=== PATIENT | male | born 1975 | race Caucasian/White ===

== ENCOUNTER 2021-12-18 19:10 | Inpatient (IN) | payer OTHER ==
[2021-12-18 20:19] VITALS: BMI 26.6
[2021-12-18] MEDS ORDERED: ONDANSETRON *ODT* 4 MG TABLET SL PRN (21:53)
[2021-12-18] MEDS ORDERED: LOPERAMIDE HCL 2 MG CAPSULE PO PRN (21:53)
[2021-12-18] MEDS ORDERED: ACETAMINOPHEN 325 MG TABLET (FP) PO PRN (21:53)
[2021-12-18] MEDS ORDERED: NICOTINE 10 MG CARTRIDGE (INHALER) IH PRN (21:53)
[2021-12-18] MEDS ORDERED: MAGNESIUM CITRATE 300 ML BOTTLE PO PRN (21:53)
[2021-12-18] MEDS ORDERED: chlordiazePOXIDE HCL 25 MG CAPSULE PO PRN (21:53)
[2021-12-18] MEDS ORDERED: BENZOCAINE/MENTHOL (CHLORASEPTIC ) LOZENGE MM PRN (21:53)
[2021-12-18] MEDS ORDERED: DICYCLOMINE HCL 10 MG CAPSULE PO PRN (21:53)
[2021-12-18] MEDS ORDERED: MAGNESIUM HYDROX 2400MG/30ML ORAL SUSPENSION 30 ML CUP PO PRN (21:53)
[2021-12-18] MEDS ORDERED: DIVALPROEX SODIUM 500 MG TABLET E.C. PO SCH (22:00)
[2021-12-18] MEDS ORDERED: traZODone HCL 50 MG TABLET (FP) PO ONE (22:00)
[2021-12-18] MEDS: DIVALPROEX SODIUM 500 MG TABLET E.C. PO SCH (23:03)
[2021-12-18] MEDS: hydrOXYzine PAMOATE 25 MG CAPSULE (FP) PO PRN (23:03)
[2021-12-18] MEDS: chlordiazePOXIDE HCL 25 MG CAPSULE PO SCH (23:03)
[2021-12-18] MEDS: MELATONIN 5 MG TABLETS PO SCH (23:04)
[2021-12-18] MEDS: THIAMINE HCL 100 MG TABLET (FP) PO SCH (23:05)
[2021-12-19] MEDS: hydrOXYzine PAMOATE 25 MG CAPSULE (FP) PO PRN ×3 (05:34→17:54)
[2021-12-19] MEDS: chlordiazePOXIDE HCL 25 MG CAPSULE PO SCH ×4 (05:34→22:19)
[2021-12-19] MEDS: PRENATAL VITAMINS W/ FOLIC ACID TABLET (FP) PO SCH (10:11)
[2021-12-19] MEDS: DIVALPROEX SODIUM 500 MG TABLET E.C. PO SCH ×3 (10:11→22:40)
[2021-12-19] MEDS: PARoxetine HCL 20 MG TABLET PO SCH (10:12)
[2021-12-19] MEDS: METHOCARBAMOL 500 MG TABLET PO PRN (10:13)
[2021-12-19 11:15] LABS: HEMATOCRIT 39.5 % (35.4-49); HEMOGLOBIN 13.1 GM/dL (11.7-16.9); MCH 33.6 pg (25.7-33.7); MCHC 33.2 g/dl (32.0-35.9); MEAN CELL VOLUME 101.3 fl (80-96); MEAN PLT VOLUME 8.9 fl (7.5-11.1); PLATELET COUNT 216 10^3/uL (134-434); RDW 16.6 % (11.9-15.9); WHITE BLOOD COUNT 4.2 K/mm3 (4.0-10.0)
[2021-12-19 13:05] LABS: ALBUMIN 3.2 g/dl (3.4-5.0)
[2021-12-19 13:07] LABS: CALCIUM 8.9 mg/dL (8.5-10.1)
[2021-12-19 13:09] LABS: BLOOD UREA NITROGEN 12.8 mg/dL (7-18)
[2021-12-19 13:10] LABS: CREATININE 0.7 mg/dL (0.55-1.3)
[2021-12-19 13:11] LABS: BILIRUBIN,TOTAL 0.2 mg/dL (0.2-1); TOT PROT 5.9 g/dl (6.4-8.2)
[2021-12-19] MEDS: MAG HYDROX/AL HYDROX/SIMETH 30 ML UNIT-DOSE CUP PO PRN (17:16)
[2021-12-19] MEDS: ACETAMINOPHEN 325 MG TABLET (FP) PO PRN (17:57)
[2021-12-19] MEDS ORDERED: NICOTINE POLACRILEX 2 MG GUM BUC PRN (18:26)
[2021-12-19] MEDS: THIAMINE HCL 100 MG TABLET (FP) PO SCH (22:17)
[2021-12-19] MEDS: MELATONIN 5 MG TABLETS PO SCH (22:17)
[2021-12-19] MEDS: traZODone HCL 100 MG TABLET (FP) PO SCH (22:18)
[2021-12-20] MEDS: chlordiazePOXIDE HCL 25 MG CAPSULE PO SCH ×3 (07:54→17:39)
[2021-12-20] MEDS: METHOCARBAMOL 500 MG TABLET PO PRN (10:25)
[2021-12-20] MEDS: PRENATAL VITAMINS W/ FOLIC ACID TABLET (FP) PO SCH (10:25)
[2021-12-20] MEDS: DIVALPROEX SODIUM 500 MG TABLET E.C. PO SCH (10:25)
[2021-12-20] MEDS: PARoxetine HCL 20 MG TABLET PO SCH (10:45)
[2021-12-20] MEDS: hydrOXYzine PAMOATE 25 MG CAPSULE (FP) PO PRN (17:38)
[2021-12-20] MEDS: ACETAMINOPHEN 325 MG TABLET (FP) PO PRN (17:39)
[2021-12-21] MEDS ORDERED: chlordiazePOXIDE HCL 10 MG CAPSULE PO PRN
[2021-12-21] MEDS: traZODone HCL 100 MG TABLET (FP) PO SCH ×2 (01:16→22:04)
[2021-12-21] MEDS: DIVALPROEX SODIUM 500 MG TABLET E.C. PO SCH ×3 (01:16→22:04)
[2021-12-21] MEDS: chlordiazePOXIDE HCL 25 MG CAPSULE PO SCH (01:17)
[2021-12-21] MEDS: MELATONIN 5 MG TABLETS PO SCH ×2 (01:18→22:03)
[2021-12-21] MEDS: THIAMINE HCL 100 MG TABLET (FP) PO SCH ×2 (01:18→22:03)
[2021-12-21] MEDS: chlordiazePOXIDE HCL 10 MG CAPSULE PO SCH ×4 (06:06→22:04)
[2021-12-21] MEDS: PARoxetine HCL 20 MG TABLET PO SCH (11:29)
[2021-12-21] MEDS: PRENATAL VITAMINS W/ FOLIC ACID TABLET (FP) PO SCH (11:29)
[2021-12-21] MEDS: METHOCARBAMOL 500 MG TABLET PO PRN (17:11)
[2021-12-21] MEDS: hydrOXYzine PAMOATE 25 MG CAPSULE (FP) PO PRN (17:11)
[2021-12-22] MEDS: chlordiazePOXIDE HCL 10 MG CAPSULE PO SCH ×2 (05:36→16:59)
[2021-12-22] MEDS: ACETAMINOPHEN 325 MG TABLET (FP) PO PRN ×2 (08:57→17:00)
[2021-12-22] MEDS: DIVALPROEX SODIUM 500 MG TABLET E.C. PO SCH ×2 (10:35→22:20)
[2021-12-22] MEDS: PRENATAL VITAMINS W/ FOLIC ACID TABLET (FP) PO SCH (10:35)
[2021-12-22] MEDS: PARoxetine HCL 20 MG TABLET PO SCH (10:36)
[2021-12-22] MEDS: METHOCARBAMOL 500 MG TABLET PO PRN (17:00)
[2021-12-22] MEDS: THIAMINE HCL 100 MG TABLET (FP) PO SCH (22:20)
[2021-12-22] MEDS: MELATONIN 5 MG TABLETS PO SCH (22:20)
[2021-12-22] MEDS: traZODone HCL 100 MG TABLET (FP) PO SCH (22:20)
[2021-12-23] MEDS ORDERED: chlordiazePOXIDE HCL 10 MG CAPSULE PO ONE (05:00)
[2021-12-23] MEDS: MAG HYDROX/AL HYDROX/SIMETH 30 ML UNIT-DOSE CUP PO PRN (06:22)
[2021-12-23] MEDS: hydrOXYzine PAMOATE 25 MG CAPSULE (FP) PO PRN ×3 (06:22→17:31)
[2021-12-23] MEDS: PRENATAL VITAMINS W/ FOLIC ACID TABLET (FP) PO SCH (10:31)
[2021-12-23] MEDS: METHOCARBAMOL 500 MG TABLET PO PRN (10:32)
[2021-12-23] MEDS: PARoxetine HCL 20 MG TABLET PO SCH (10:34)
[2021-12-23] MEDS: DIVALPROEX SODIUM 500 MG TABLET E.C. PO SCH ×2 (10:34→23:48)
[2021-12-23 17:26] VITALS: BP 98/60; PULSE 56; TEMP 97.8
[2021-12-23] MEDS: traZODone HCL 100 MG TABLET (FP) PO SCH (23:18)
[2021-12-23] MEDS: THIAMINE HCL 100 MG TABLET (FP) PO SCH (23:49)
[2021-12-23] MEDS: MELATONIN 5 MG TABLETS PO SCH (23:49)
[2021-12-24] MEDS: PARoxetine HCL 20 MG TABLET PO SCH (09:18)
[2021-12-24] MEDS: PRENATAL VITAMINS W/ FOLIC ACID TABLET (FP) PO SCH (09:18)
[2021-12-24] MEDS: DIVALPROEX SODIUM 500 MG TABLET E.C. PO SCH (09:18)
== END 2021-12-24 09:02 | disposition home or self-care (01) | DRG 775 ==
LOC: YASAS 19:10 → Y6N 21:04
PROVIDERS: ADMIT Allergy & Immunology; ATTEND Surgery
PROC: HZ2ZZZZ Detoxification Services for Substance Abuse Treatment (ICD-10-PCS; principal; 2021-12-18)
DX: F10.230 Alcohol dependence with withdrawal, uncomplicated (principal); F17.210 Nicotine dependence, cigarettes, uncomplicated; F31.9 Bipolar disorder, unspecified; F20.9 Schizophrenia, unspecified; G40.909 Epilepsy, unspecified, not intractable, without status epilepticus; L40.9 Psoriasis, unspecified; M54.40 Lumbago with sciatica, unspecified side; M47.819 Spondylosis without myelopathy or radiculopathy, site unspecified; S09.90XA Unspecified injury of head, initial encounter; W19.XXXA Unspecified fall, initial encounter; Y92.239 Unspecified place in hospital as the place of occurrence of the external cause; Z62.810 Personal history of physical and sexual abuse in childhood; Z91.81 History of falling; Z56.0 Unemployment, unspecified; Z59.01 Sheltered homelessness
CPT/HCPCS: 36415; 80053; 80164; 85027; 86780; C9803-CS; U0003; U0005

== ENCOUNTER 2021-12-20 21:13 | Emergency (ER) | payer OTHER ==
[2021-12-20 21:22] VITALS: BMI 26.6
[2021-12-20] MEDS ORDERED: ACETAMINOPHEN 325 MG TABLET (FP) PO ONE (23:12)
[2021-12-21] MEDS ORDERED: ACETAMINOPHEN 325 MG TABLET (FP) ONE (00:11)
[2021-12-21] MEDS ORDERED: DIVALPROEX SODIUM 500 MG TABLET E.C. PO ONE (01:22)
[2021-12-21] MEDS ORDERED: chlordiazePOXIDE HCL 10 MG CAPSULE PO ONE (01:23)
[2021-12-21] MEDS ORDERED: traZODone HCL 50 MG TABLET (FP) PO ONE (01:23)
[2021-12-21] MEDS ORDERED: DIVALPROEX SODIUM 500 MG TABLET E.C. ONE (03:06)
[2021-12-21] MEDS ORDERED: chlordiazePOXIDE HCL 10 MG CAPSULE ONE (03:06)
[2021-12-21 03:29] LABS: BASO % 0.5 % (0-2.0); EOS % 3.3 % (0-4.5); HEMOGLOBIN 12.8 GM/dL (11.7-16.9); LYMPH % 41.5 % (8-40); MCHC 33.7 g/dl (32.0-35.9); MEAN CELL VOLUME 100.7 fl (80-96); MEAN PLT VOLUME 8.8 fl (7.5-11.1); MONO % 12.4 % (3.8-10.2); NEUT % 42.3 % (42.8-82.8); PLATELET COUNT 205 10^3/uL (134-434); RBC 3.77 M/mm3 (4.00-5.60); RDW 16.1 % (11.9-15.9); WHITE BLOOD COUNT 4.4 K/mm3 (4.0-10.0)
[2021-12-21 03:49] LABS: CALCIUM 9.2 mg/dL (8.5-10.1)
[2021-12-21 03:50] LABS: ALBUMIN 3.2 g/dl (3.4-5.0); BLOOD UREA NITROGEN 9.8 mg/dL (7-18)
[2021-12-21 03:53] LABS: CREATININE 0.9 mg/dL (0.55-1.3)
[2021-12-21 03:55] LABS: BILIRUBIN,TOTAL 0.2 mg/dL (0.2-1); TOT PROT 6.3 g/dl (6.4-8.2)
[2021-12-21] MEDS ORDERED: SODIUM CHLORIDE 1,000 ML IV STA (06:06)
[2021-12-21 06:20] VITALS: TEMP 97.2
[2021-12-21 10:48] VITALS: BP 93/60; PULSE 53
== END 2021-12-21 13:16 | disposition short-term general hospital (02) ==
LOC: JER 21:13
DX: R45.851 Suicidal ideations (principal); F10.239 Alcohol dependence with withdrawal, unspecified
CPT/HCPCS: 36415; 71045-TC-FY; 73070-TC-RT-FY; 73610-TC-RT-FY; 73630-TC-RT-FY; 80053; 83735; 84484; 85025; 93005; 93010; 99285-25